=== PATIENT | female | born 1985 | race Caucasian/White ===

== ENCOUNTER → 2016-11-12 | Outpatient (CLI) | payer OTHER ==
--- NOTE | 2016-11-12 15:53 | US ---
EXAMINATION TYPE: US transvaginal DATE OF EXAM: 11/12/2016 COMPARISON: US CLINICAL HISTORY: E28.2 Polycystic ovarian syndrome,N91.2Amenorrhea. Pt has known PCOS, abnormal mens es TECHNIQUE: Transvaginal (TV) Date of LMP: 10/16/2016, pt states LMP prior to that was 2 years ago EXAM MEASUREMENTS: Uterus: 9.0 x 4.5 x 4.5 cm Endometrial Stripe: 0.7 cm Right Ovary: 4.8 x 3.4 x 2.7 cm Left Ovary: 5.2 x 3.6 x 3.4 cm 1. Uterus: Anteverted Heterogeneous, cystic lower uterine segment 2. Endometrium: wnl 3. Right Ovary: Enlarged, multiple follicles, "string of pearls" appearance 4. Left Ovary: Enlarged, multiple follicles, "string of pearls" appearance 5. Bilateral Adnexa: wnl 6. Posterior cul-de-sac: wnl Numerous nabothian cysts are appreciated with some cystic spaces in the lower uterine segment. IMPRESSION: Redemonstration of bilateral enlarged ovaries containing peripherally oriented numerous f ollicles in keeping with the patient's history of polycystic ovarian syndrome.
== END | disposition home or self-care (01) ==
LOC: RADUSWWP 14:52
PROVIDERS: ATTEND Family Medicine
DX: E28.2 Polycystic ovarian syndrome (principal); N91.2 Amenorrhea, unspecified; Z88.7 Allergy status to serum and vaccine; Z88.8 Allergy status to other drugs, medicaments and biological substances
CPT/HCPCS: 76830

== ENCOUNTER → 2017-11-30 | Outpatient (CLI) | payer OTHER ==
--- NOTE | 2017-11-30 14:39 | US ---
EXAMINATION TYPE: US thyroid st tissue head/neck DATE OF EXAM: 11/30/2017 COMPARISON: NONE CLINICAL HISTORY: Abnormal R94.6 thyroid labs. Abnormal labs. On thyroid meds. No previous US. GLAND SIZE: Right Lobe: 3.8 x 1.0 x 1.2 cm Overall Parenchyma: homogenous Left Lobe: 3.5 x 1.1 x 1.0 cm Overall Parenchyma: homogeneous Isthmus Thickness: 0.3 cm NODULES RIGHT: # of nodules measured on right: 0 LEFT: # of nodules measured on left: 0 ISTHMUS: # of nodules measured in the isthmus: 0 Bilateral neck scanned. Superior to left thyroid lymph node visualized = 3.1 x 1.5 x 0.9 cm IMPRESSION: 1. Normal-appearing thyroid gland. 2. Mildly prominent lymph node superior to the left thyroid lobe.
== END | disposition home or self-care (01) ==
LOC: RADUSWWP 12:53
PROVIDERS: ATTEND Family Medicine
DX: R94.6 Abnormal results of thyroid function studies (principal); Z88.8 Allergy status to other drugs, medicaments and biological substances; Z91.048 Other nonmedicinal substance allergy status
CPT/HCPCS: 76536

== ENCOUNTER 2019-05-31 07:51 | Day surgery (SDC) | payer OTHER ==
[2019-05-26 14:56] VITALS: BMI 49.8
[~2019-05-31 07:51] MED LIST: LACTATED RINGERS 1,000 ML IV SCH; LIDOCAINE 1% (10MG/ML) FOR IV START INTRADERMA PRN; MIDAZOLAM 2 MG/2 ML VIAL IV PRN
[2019-05-31 08:07] VITALS: RESP 20; TEMP 97.1
[2019-05-31 08:17] LABS: Glucose,Whole Blood 132 mg/dL (75-99)
[2019-05-31] MEDS ORDERED: LIDOCAINE 1% INJ 10MG/ML (20 ML MDV) ONE (08:20)
[2019-05-31] MEDS ORDERED: MIDAZOLAM 2 MG/2 ML VIAL ONE (08:20)
[2019-05-31] MEDS ORDERED: fentaNYL (PF) 50 MCG/ML 2 ML AMP ONE (08:20)
[2019-05-31] MEDS ORDERED: PROPOFOL 10 MG/ML 20 ML VIAL IV ONE (08:20)
--- NOTE | 2019-05-31 08:36 | P.OP ---
Date of Procedure: 05/31/19 Preoperative Diagnosis: GI Bleed Postoperative Diagnosis: Internal hemorrhoids Procedure(s) Performed: Colonoscopy Surgeon: Kathie Barbosa Pathology: none sent Condition: stable Disposition: same day Indications for Procedure: 33-year-old female presented with complaints of GI bleed. She was noted to have bright red blood per rectum. Secondary to this, plan is for colonoscopy for further evaluation. She was explained risks, benefits and alternatives to the procedure and did provide consent prior to attending the endoscopy suite. Operative Findings: Internal hemorrhoids Description of Procedure: The patient was brought into the endoscopy suite. She was then placed in left lateral decubitus position and adequate sedation was achieved using conscious sedation. A digital rectal exam was performed and mild internal hemorrhoids were palpated. An endoscope was then placed in the rectum and advanced to the cecum as identified by landmarks including the appendiceal orifice and the ileocecal valve. The prep was good. The colonoscope was then slowly withdrawn, examining for any mucosal abnormalities. The cecum, ascending, transverse, descending and sigmoid colon were visualized adequately. There were no obvious neoplastic lesions noted throughout the colon. There were no obvious polyps throughout the colon. There was no evidence of diverticulosis. Retroflexion was performed in the rectum and mild internal hemorrhoids were visible. Excess air was removed, the colonoscope withdrawn and the procedure terminated. The patient was then transferred to the recovery unit in stable condition. Repeat colonoscopy should be performed at the age of 49 unless otherwise symptomatic.
[2019-05-31 09:02] VITALS: BP 132/59; PULSE 90
== END 2019-05-31 09:18 | disposition home or self-care (01) ==
LOC: ORWHC2ENDO 07:51
PROVIDERS: ATTEND Surgery
DX: K64.8 Other hemorrhoids (principal); G40.909 Epilepsy, unspecified, not intractable, without status epilepticus; F43.10 Post-traumatic stress disorder, unspecified; Z88.0 Allergy status to penicillin; Z88.8 Allergy status to other drugs, medicaments and biological substances; Z79.890 Hormone replacement therapy; Z79.899 Other long term (current) drug therapy
CPT/HCPCS: 45378; 81025; J2250; J2001; J3010; J2704

== ENCOUNTER 2023-09-26 10:11 | Emergency (ER) | payer OTHER ==
[2023-09-26 10:51] VITALS: RESP 14
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
[2023-09-26 12:14] LABS: Glucose,Whole Blood 117 mg/dL (70-110)
[2023-09-26 12:46] LABS: Amphetamine Screen,Urine Not Detected (NotDetected); Barbiturate Screen,Urine Not Detected (NotDetected); Benzodiazepines Screen,Urine Not Detected (NotDetected); Cocaine Screen,Urine Not Detected (NotDetected); Methadone Screen, Urine Not Detected (NotDetected); Opiate Screen,Urine Not Detected (NotDetected); Oxycodone Screen, Urine Not Detected (NotDetected); Phencyclidine Screen,Urine Not Detected (NotDetected); Tricyclic Antidepressant,Urine Not Detected (NotDetected); Urn Cannabinoid Scrn Not Detected (NotDetected)
[2023-09-26] MEDS: LORazepam 1 MG TAB PO STA (13:06)
[2023-09-26] MEDS: DIVALPROEX 500 MG TABLET.DR PO STA (13:06)
[2023-09-26] MEDS: risperiDONE 0.5 MG TAB PO ONE (13:19)
[2023-09-26 14:24] VITALS: BP 121/83; PULSE 85; TEMP 98.3
[2023-09-27] MEDS ORDERED: LEVOTHYROXINE 125 MCG TAB PO SCH (06:30)
== END 2023-09-26 14:37 | disposition home or self-care (01) ==
LOC: EC 10:11
DX: F31.9 Bipolar disorder, unspecified (principal); F17.290 Nicotine dependence, other tobacco product, uncomplicated; F12.90 Cannabis use, unspecified, uncomplicated; Z88.0 Allergy status to penicillin; Z91.018 Allergy to other foods; Z88.8 Allergy status to other drugs, medicaments and biological substances; Z88.7 Allergy status to serum and vaccine
CPT/HCPCS: 36415; 80164; 80306; 82075; 99285